=== PATIENT | female | born 1990 | race African-American/Black ===

== ENCOUNTER 2021-06-06 16:16 | Emergency (ER) | payer OTHER ==
[2021-06-06] MEDS ORDERED: KETOROLAC 60 MG/2 ML INJ IM ONE (18:21)
--- NOTE | 2021-06-06 18:33 | Emergency Department Report ---
ED Extremity Problem HPI - General Chief complaint: Extremity Injury, Lower Stated complaint: POPPED CUFF Time Seen by Provider: 06/06/21 18:05 Source: patient Mode of arrival: Ambulatory Limitations: No Limitations - History of Present Illness Initial comments: 30-year-old female presents to the hospital with complaints of left calf pain. 2 days ago while doing her HIT exercises and heard a pop calf. She now complains of posterior medial thigh pain. Patient states that pain at rest has improved but when she puts pressure on her foot she has 10 out of 10 pain into her calf with ambulation. Patient taken Advil intermittently with some mild relief. No pain meds taken today. patient points to one specific area of the calf where she is injured. She states she has to walk with a limp. She is visiting here from [place] and arrived via plane 2 weeks ago and also expresses concern for DVT Severity scale (0 -10): 10 - Related Data Previous Rx's Medication Instructions Recorded Last Taken Type Ibuprofen [Motrin] 800 mg PO Q8HR PRN #20 tablet 06/06/21 Unknown Rx traMADoL [Ultram 50 MG tab] 50 mg PO Q6HR PRN #20 tablet 06/06/21 Unknown Rx Allergies Allergy/AdvReac Type Severity Reaction Status Date / Time No Known Allergies Allergy Verified 06/06/21 17:19 ED Review of Systems ROS: Stated complaint: POPPED CUFF Other details as noted in HPI Comment: All other systems reviewed and negative ED Past Medical Hx - Past Medical History Previous Medical History?: Yes - Surgical History Past Surgical History?: No - Social History Smoking Status: Never Smoker Substance Use Type: None - Medications Home Medications: Home Medications Medication Instructions Recorded Confirmed Last Taken Type Ibuprofen [Motrin] 800 mg PO Q8HR PRN #20 tablet 06/06/21 Unknown Rx traMADoL [Ultram 50 MG tab] 50 mg PO Q6HR PRN #20 tablet 06/06/21 Unknown Rx ED Physical Exam - General Limitations: No Limitations - Other Other exam information: General: No acute distress Head: Atraumatic Eyes: normal appearance ENT: Moist mucous membranes Neck: Normal appearance, no midline tenderness Chest: Clear to auscultation bilaterally CV: Regular rate and rhythm Abdomen: Soft, normal bowel sounds, nontender, nondistended, no rebound or guarding Back: Normal inspection Extremity: Left calf tenderness to palpation at 1 specific medial posterior area. No diffuse calf swelling. Mild bruising noted to left foot at the area of the first and second metatarsal with mild pain to palpation, 2+ DP pulse. Patient able to approximately 20 degrees although with pain. Patient does not have isolated Achilles tendon tenderness. Fischer test performed and patient does have plantarflexion with calf squeeze Neuro: Alert O x 3, no facial asymmetry, speech clear, no gross motor sensory deficit Psych: Appropriate behavior Skin: No rash ED Course Vital Signs 06/06/21 06/06/21 16:27 17:20 Temperature 98.9 F 98.4 F Pulse Rate 108 H 72 Respiratory 15 20 Rate Blood Pressure 123/74 130/79 [Left] O2 Sat by Pulse 98 100 Oximetry ED Medical Decision Making - Radiology Data Radiology results: report reviewed DUPLEX DOPPLER LOWER EXTREMITY VEINS, LEFT INDICATION / CLINICAL INFORMATION: left calf pain. TECHNIQUE: Duplex doppler imaging was performed through the veins of the left lower extremity using venous compression and other maneuvers. COMPARISON: None available. FINDINGS: LEFT COMMON FEMORAL VEIN: Negative. LEFT FEMORAL VEIN: Negative. LEFT POPLITEAL VEIN: Negative. LEFT CALF VEINS: Negative. ADDITIONAL FINDINGS: None. IMPRESSION: 1. No sonographic evidence for DVT in the left lower extremity. - Medical Decision Making 30-year-old female presents to the hospital left calf pain after feeling a pop while exercising. Patient does not have any signs of Achilles tendon rupture and passed to Fischer's test. She has tenderness in 1 specific portion of her calf muscle and he is able to bear weight partial weight. Patient DVT test was negative for blood clot. She will be treated symptomatically for pain and offered crutches to assist with ambulation Critical Care Time: No Critical care attestation.: If time is entered above; I have spent that time in minutes in the direct care of this critically ill patient, excluding procedure time. ED Disposition Clinical Impression: Strain of left calf muscle Disposition: HOME / SELF CARE / HOMELESS Is pt being admited?: No Condition: Stable Instructions: Muscle Strain, [id number], Crutch Use, Adult, [id number] Additional Instructions: Take the medication as prescribed. Follow-up with your orthopedic doctor or the orthopedic doctor provided. Return if symptoms worsen as indicated by your discharge instructions. Prescriptions: Ibuprofen [Motrin] 800 mg PO Q8HR PRN #20 tablet PRN Reason: Pain , Severe (7-10) traMADoL [Ultram 50 MG tab] 50 mg PO Q6HR PRN #20 tablet PRN Reason: Pain Referrals: Fanta FULLER MD [Other] - 3-5 Days MARIAMA CHAVIRA MD [Staff Physician] - 3-5 Days Time of Disposition: 21:15
--- NOTE | 2021-06-06 20:38 | Vascular Lab Report ---
DUPLEX DOPPLER LOWER EXTREMITY VEINS, LEFT INDICATION / CLINICAL INFORMATION: left calf pain. TECHNIQUE: Duplex doppler imaging was performed through the veins of the left lower extremity using v enous compression and other maneuvers. COMPARISON: None available. FINDINGS: LEFT COMMON FEMORAL VEIN: Negative. LEFT FEMORAL VEIN: Negative. LEFT POPLITEAL VEIN: Negative. LEFT CALF VEINS: Negative. ADDITIONAL FINDINGS: None. IMPRESSION: 1. No sonographic evidence for DVT in the left lower extremity. Signer Name: Jose Spivey MD Signed: 06/06/2021 8:34 PM Workstation Name: [id number]
[2021-06-06 21:43] VITALS: BP 132/80
== END 2021-06-06 21:43 | disposition home or self-care (01) ==
LOC: ED 16:16
DX: S76.912A Strain of unspecified muscles, fascia and tendons at thigh level, left thigh, initial encounter (principal); Y93.B9 Activity, other involving muscle strengthening exercises; Y92.89 Other specified places as the place of occurrence of the external cause; Y99.8 Other external cause status
CPT/HCPCS: 93971; 96372; 99283; J1885